=== PATIENT | male | born 1985 | race Caucasian/White ===

== ENCOUNTER 2018-01-30 00:48 | Emergency (ER) | payer OTHER, SELFPAY ==
[2018-01-30 00:50] VITALS: BP 133/86; PULSE 74; RESP 16; TEMP 36.3; O2SAT 99
--- NOTE | 2018-01-30 01:57 | ED.VISSUMM ---
- ER Visit Summary Date of Service: 01/30/18 Chief Complaint: Dental pain History of Present Illness: The patient is a 32 M who goes to [facility]. He had his right mandibular second molar pulled today. He reports that as the numbing wore off he had pain that is sharp. Is 10 out of 10 worsening a 10 currently. It is worsened by saltwater periods relieved by putting liquid in his mouth. He denies any fever, chills, nausea, vomiting, or facial swelling. Physical Examination: Vitals: Stable. Afebrile. Mouth: No trismus. No edema of the floor of the mouth. Right mandibular second molar is absent. There is no clot in place. There is exposed bone. General: A&O x 3. NAD. Cardiovascular exam: Regular rate and rhythm, no murmur, rub or gallop. Respiratory exam: Clear to auscultation bilaterally. No wheezes or stridor. Abdominal exam: Soft, nontender, nondistended, normal bowel sounds. No peritoneal signs. Extremity: No clubbing, cyanosis, or edema. Emergency Department Course and Treatment: Patient had a right inferior alveolar nerve block performed. It did give him some relief. He continues to complain of pain. I did attempt to place eugenol paste over this and this did not relieve his pain either. Treatment Plan: Patient will be discharged with [place] home pack and instructed to follow-up with [facility] in the morning for further evaluation. Disposition: To home in improved and stable condition. Impression: 1. Post extraction pain, right mandibular second molar. 2. Dental block. This note was generated with [employer] dictation software. It may contain incorrect words, spelling, and punctuation that were not noted in review of the chart prior to signing ED Disposition - Plan for ED Patient: Disposition: Home or Assisted Living Chief Complaint: Dental Instructions: ED Socket Dry Prescriptions: Hydrocodone Bitart/Apap 5-325 [[place] 5/325] 1 - 2 tablet PO Q4H PRN PRN 5 Days #12 tablet PRN Reason: Pain Referrals: Dentist,Your [STAFF PHYSICIAN] - 1 Day for another exam
[2018-01-30] MEDS: HYDROcodone Bitartrate/Apap 5/325 Tablet PO (02:08)
[2018-01-30 02:18] VITALS: RESP 16
--- NOTE | 2018-01-30 02:20 | ED.RN ---
REVIEWED D/C INSTRUCTIONS, FOLLOW UP CARE, PRESCRIPTIONS, AND S/S THAT WOULD WARRANT A RETURN TO THE ED WITH PT. PT VERBALIZED AN UNDERSTANDING AND DENIES FURTHER QUESTIONS FOR THIS RN. PT SKIN P/W/D, RESP EVEN AND UNLABORED, PT A&O X 3, NO DISTRESS NOTED. PT AMBULATED OUT OF ED, GAIT STEADY.
== END 2018-01-30 02:22 | disposition home or self-care (01) ==
PROVIDERS: Emergency Provider Emergency Medicine
DX: K08.89 Other specified disorders of teeth and supporting structures (principal); Z98.818 Other dental procedure status
CPT/HCPCS: 64402; 99282

== ENCOUNTER 2018-01-31 07:17 | Emergency (ER) | payer OTHER, SELFPAY ==
[2018-01-31 07:18] VITALS: BP 134/84; PULSE 110; RESP 18; TEMP 36.6; O2SAT 98; BMI 19.5
--- NOTE | 2018-01-31 08:20 | ED.VISSUMM ---
- ER Visit Summary Date of Service: 01/31/18 Chief Complaint: Chills and nausea History of Present Illness: The patient is a 32 M who states that on Sunday he had dental pain. He was seen very early Sunday morning with dental pain. He saw his dentist yesterday. Dental pain was better. He is on amoxicillin. Patient states now he has a generalized headache. He notes generalized myalgias. He notes a pain in his kidney and he points to his right mid axillary lower abdomen. He feels subjectively like he may have a fever. No cough. He notes generalized nausea particularly when standing. Physical Examination: Afebrile vital signs are stable Gen: Well-nourished well-developed Head: Normocephalic atraumatic Eyes: Perrl EOMI ENT: TMs clear no rhinorrhea moist mucous membranes dental extraction Neck: Supple no lymphadenopathy no JVD nontender CVS: Regular rate rhythm no murmurs normal S1-S2 Respiratory: No distress clear to auscultation bilaterally chest nontender Abdomen: Soft nontender nondistended normal bowel sounds no masses Back: Nontender Extremity: Nontender no edema Skin: Normal color no rash Neuro: alert orientated ?3 CN II-XII intact normal strength sensation reflexes gait cerebellar Psych: Normal affect normal mood Emergency Department Course and Treatment: During physical exam patient had a phone call from [employer] and he had no problems looking at his phone and talking on the phone. I excused myself for his privacy. Patient received Motrin and Zofran. I think the patient most likely has a viral syndrome. I do not see complications at the extraction site. He has no facial swelling. Impression: 1. Headache 2. Nausea status post dental extraction day 2 This note was generated with [employer] dictation software. It may contain incorrect words, spelling, and punctuation that were not noted in review of the chart prior to signing ED Disposition - Plan for ED Patient: Disposition: Home or Assisted Living Chief Complaint: Dental Instructions: ED Cephalgia Unspecified Prescriptions: Ondansetron [Zofran Odt] 4 mg PO Q8H PRN PRN #10 tab PRN Reason: Nausea Ibuprofen [Motrin] 800 mg PO TID PRN PRN #20 tab PRN Reason: Pain Referrals: Care Physician,No Primary [Primary Care Provider] - Diana Askew MD [STAFF PHYSICIAN] - (Call today to schedule follow-up as well as establish primary care)
[2018-01-31] MEDS: Ibuprofen 400 MG Tablet 800 MG PO (08:24)
[2018-01-31] MEDS: Ondansetron ODT 4 MG Tablet PO (08:24)
--- NOTE | 2018-01-31 08:24 | ED.DCSUM_ITS ---
- ER Visit Summary Date of Service: 01/31/18 Chief Complaint: Chills and nausea History of Present Illness: The patient is a 32 M who states that on Sunday he had dental pain. He was seen very early Sunday morning with dental pain. He saw his dentist yesterday. Dental pain was better. He is on amoxicillin. Patient states now he has a generalized headache. He notes generalized myalgias. He notes a pain in his kidney and he points to his right mid axillary lower abdomen. He feels subjectively like he may have a fever. No cough. He notes generalized nausea particularly when standing. Physical Examination: Afebrile vital signs are stable Gen: Well-nourished well-developed Head: Normocephalic atraumatic Eyes: Perrl EOMI ENT: TMs clear no rhinorrhea moist mucous membranes dental extraction Neck: Supple no lymphadenopathy no JVD nontender CVS: Regular rate rhythm no murmurs normal S1-S2 Respiratory: No distress clear to auscultation bilaterally chest nontender Abdomen: Soft nontender nondistended normal bowel sounds no masses Back: Nontender Extremity: Nontender no edema Skin: Normal color no rash Neuro: alert orientated ?3 CN II-XII intact normal strength sensation reflexes gait cerebellar Psych: Normal affect normal mood Emergency Department Course and Treatment: During physical exam patient had a phone call from [employer] and he had no problems looking at his phone and talking on the phone. I excused myself for his privacy. Patient received Motrin and Zofran. I think the patient most likely has a viral syndrome. I do not see complications at the extraction site. He has no facial swelling. Impression: 1. Headache 2. Nausea status post dental extraction day 2 This note was generated with [employer] dictation software. It may contain incorrect words, spelling, and punctuation that were not noted in review of the chart prior to signing ED Disposition - Plan for ED Patient: Disposition: Home or Assisted Living Chief Complaint: Dental Instructions: ED Cephalgia Unspecified Prescriptions: Ondansetron [Zofran Odt] 4 mg PO Q8H PRN PRN #10 tab PRN Reason: Nausea Ibuprofen [Motrin] 800 mg PO TID PRN PRN #20 tab PRN Reason: Pain Referrals: Care Physician,No Primary [Primary Care Provider] - Diana Askew MD [STAFF PHYSICIAN] - (Call today to schedule follow-up as well as establish primary care)
[2018-01-31 08:43] VITALS: RESP 18
== END 2018-01-31 08:43 | disposition home or self-care (01) ==
PROVIDERS: Emergency Provider Emergency Medicine
DX: R51 Headache (principal); R11.0 Nausea; M79.1 Myalgia; Z98.818 Other dental procedure status; R10.31 Right lower quadrant pain; R68.83 Chills (without fever); Z79.2 Long term (current) use of antibiotics
CPT/HCPCS: 99284

== ENCOUNTER 2022-10-05 05:44 | Emergency (ER) | payer BC, SELFPAY ==
[2022-10-05 05:44] VITALS: BP 127/85; PULSE 77; RESP 16; TEMP 36; O2SAT 100; BMI 17.2
--- NOTE | 2022-10-05 07:13 | EDS_ITS ---
HPI History of Present Illness Chief Complaint: General Illness Informant: patient Onset/Context/Timing Onset: Weeks (1) Context: Gradual Onset Timing: Continuous Quality: Aching Location: Throat, head Worsened by: Nothing Relieved by: Sleeping Narrative Narrative: Patient presents with with sore throat, chills, rhinorrhea, and crusting of his eyes that have been getting worse over the past week. Patient states today he woke up and his eyes were crusted shut. Patient used a warm compress and he was able to open them. Patient noted some redness in his eyes. Patient denies any blurry vision or double vision. Patient admits to some light sensitivity. Patient states he has headache and sore throat. Patient states nothing makes it worse. Patient states he is better when he was able to sleep. Patient did not take his temperature but states he felt chilled. PFSH PFSH Medical History no medical history no medical history Home Medications amoxicillin 500 mg capsule 500 mg PO Q8H 01/30/18 [History Last Taken Unknown] hydrocodone-acetaminophen 5-325mg 5mg-325mg 1 - 2 tab PO Q4H PRN PRN Pain 5 days ##12 01/30/18 [Rx Last Taken Unknown] ibuprofen 800 mg tablet 800 mg PO TID PRN PRN Pain #20 tabs 01/31/18 [Rx Last Taken Unknown] ondansetron 4 mg disintegrating tablet 4 mg PO Q8H PRN PRN Nausea #10 tabs 01/31/18 [Rx Last Taken Unknown] Allergy/AdvReac Type Severity Reaction Status Date / Time No Known Allergies Allergy Verified 01/31/18 07:22 Surgical History no surgical history no surgical history Social History Smoking Status: Never smoker ROS ROS ED Constitutional Constitutional ED: Reports chills and subjective; Denies fever(s) Eyes Eyes: Denies blurry vision or diplopia ENT ENT ED: Reports rhinorrhea and sore throat Cardiovascular Cardiovascular: Denies chest pain or palpitations Respiratory/Chest Respiratory/Chest: Reports cough; Denies dyspnea Gastrointestinal Gastrointestinal: Reports nausea; Denies vomiting Genitourinary Genitourinary ED: Denies dysuria or hematuria Musculoskeletal Musculoskeletal: Reports back pain; Denies neck pain Integumentary Denies abscess or rash Neurologic Neurologic: Reports headache(s); Denies weakness Allergic/Immunologic Allergic/Immunologic ED: Denies mouth swelling or urticaria EXAM Physical Exam Const Vital Signs: 10/05/22 05:44 Temperature 96.8 F L Temperature Source Temporal Pulse Rate 77 Respiratory Rate 16 Blood Pressure 127/85 H Blood Pressure Mean 99 Pulse Ox 100 Oxygen Delivery Method Room Air Positive well nourished and well developed General Appearance ED: well developed and NAD HEENT Reports moist mucous membranes HEENT Narrative: Oropharynx shows some mild postnasal drainage. There are no exudates noted. Tympanic membranes are clear bilaterally. Eyes PERRL and EOMs intact bilaterally Eyes Narrative: Conjunctiva is injected bilaterally, worse on the right. There is no purulent discharge or drainage noted. There is no matting or crusting. Neck no lymphadenopathy, supple and no JVD Resp normal respiratory effort and clear to auscultation bilaterally Cardio regular rate, regular rhythm and no murmurs GI normal to inspection, nondistended, normoactive bowel sounds and non-tender Palpation: soft Extremity normal to inspection General Extremety ED: Negative for edema or tenderness General Extremity: Negative for edema Neuro oriented x3, CN's II-XII intact bilaterally and no sensory deficits noted Sensorium / Orientation: alert Motor Exam: strength 5/5 throughout Psych mental status grossly normal Skin no rashes or lesions noted MDM MDM MDM Narrative Medical decision making narrative: Patient was given a dose of Tylenol here. Patient was given erythromycin ophthalmic ointment to both eyes. Rapid strep was obtained and was negative. COVID-19 rapid antigen was obtained and was negative. Influenza A and influenza B rapid antigens were obtained and were negative. PA and lateral chest x-ray was obtained. There are 2 views. On my interpretation, lung scott are clear. There is normal cardiac silhouette. Bony thorax is normal. There is no acute process noted. Radiologist also interpreted the x-ray and agrees. Patient is feeling better on reevaluation. Patient was instructed to use the erythromycin ointment 4 times a day to both eyes. Patient was instructed to drink plenty of fluids. Patient was instructed to take Tylenol or ibuprofen as needed for any aches or fevers. Patient understood and was agreeable with the plan. All questions were answered. Radiography Chest X-Ray - ED: 2 View, Read by ED Physician, Read by Radiologist and No Acute Disease Diagnostic Testing: Clinical Impression(s) from Imaging Studies Chest X-Ray 10/05/22 08:05 IMPRESSION: Hyperinflation. The lungs are clear. Electronically Signed: Piotr Mustafa MD at 8:34 EST , Discharge Plan Triage Chief Complaint: General Illness ED Provider: Jae Collins Dx/Rx/DC Orders Clinical Impression: Conjunctivitis, Upper respiratory infection, viral Instructions: ED Conjunctivitis, Nonspecific, ED URI, Viral, No Abx (Adult) Prescriptions: No Action amoxicillin 500 MG capsule 500 mg PO Q8H hydrocodone-acetaminophen 1 TABLET tablet 1 - 2 tab PO Q4H PRN PRN (Reason: Pain) 5 Days Qty: 12 0RF ibuprofen 800 MG tablet 800 mg PO TID PRN PRN (Reason: Pain) Qty: 20 0RF ondansetron 4 MG tablet 4 mg PO Q8H PRN PRN (Reason: Nausea) Qty: 10 0RF Stand Alone Forms: ED Work / School Excuse Primary Care Provider: Care Physician,No Primary Referrals: Mark Strange MD [Med Staff - [employer]] - 5-7 Days Care Physician,No Primary [Primary Care Provider] - Disposition Disposition: Home, Self Care
--- NOTE | 2022-10-05 08:05 | RAD_ITS ---
STUDY: X-RAY CHEST REASON FOR EXAM: Male, 37 years old. Cough , chills and sore throat. TECHNIQUE: PA and lateral views of the chest. COMPARISON: None. FINDINGS: Hyperinflation. The lungs are clear. There is no demonstrated pleural abnormality. Normal size heart. Normal mediastinum and erica. Normal visualized pulmonary arteries. Normal visualized aortic arch and descending thoracic aorta. Normal visualized thoracic spine. Normal visualized ribs, clavicles, and shoulders. There is no demonstrated abnormality of the visualized soft tissue structures of the upper abdomen. RAD/Chest PA and Lateral IMPRESSION: Hyperinflation. The lungs are clear. Electronically Signed: Piotr Mustafa MD at 8:34 EST ,
[2022-10-05] MEDS: Erythromycin Base 1 OPTH.TUBE 1 APPLIC EACH EYE (09:15)
[2022-10-05] MEDS: Acetaminophen 500 MG Tablet 1000 MG PO (09:19)
[2022-10-05 10:21] VITALS: BP 136/56; PULSE 74; RESP 12; O2SAT 99
== END 2022-10-05 10:21 | disposition home or self-care (01) ==
PROVIDERS: Emergency Provider Emergency Medicine; Visit Provider Emergency Medicine
DX: J06.9 Acute upper respiratory infection, unspecified (principal); H10.9 Unspecified conjunctivitis; R68.83 Chills (without fever)
CPT/HCPCS: 71046; 87428; 87880; 99283

== ENCOUNTER 2023-02-15 05:03 | Emergency (ER) | payer BC, SELFPAY ==
[2023-02-15 05:04] VITALS: BP 121/88; PULSE 77; RESP 18; TEMP 36.7; O2SAT 99; BMI 18.0
--- NOTE | 2023-02-15 05:22 | RAD_ITS ---
EXAM: XR CHEST, 1 VIEW CLINICAL INDICATION: cough cough TECHNIQUE: Frontal view of the chest. This report was created using [employer] report generation technology. COMPARISON: Chest x-ray 10/05/2022. FINDINGS: LUNGS AND PLEURAL SPACES: Lungs are hyperexpanded on both current and previous exams, which may be due to very good inspiratory effort or might be due to air trapping. There are no demonstrated pulmonary infiltrates. No pneumothorax. No effusion. HEART: Unremarkable. Cardiac silhouette not enlarged. MEDIASTINUM: Central airways and mediastinal contour are unremarkable. BONES/JOINTS: Unremarkable. SOFT TISSUES: Unremarkable. RAD/Chest 1 View (Portable) IMPRESSION: Mild hyperexpansion of the lungs. No demonstrated pulmonary infiltrates. Electronically Signed: Brett Lombardi MD at 5:39 EDT Reading Location ID and State: [facility] / [place] , Service support ,
[2023-02-15] MEDS: Benzonatate 100 MG Capsule 200 MG PO (05:36)
[2023-02-15] MEDS: dexAMETHasone 10 MG/ML Vial PO.IVFORM (05:37)
--- NOTE | 2023-02-15 05:40 | EDS_ITS ---
HPI History of Present Illness Chief Complaint: General Illness Narrative Narrative: Patient is a 37-year-old male with no significant past medical history. He states that about 3 to 4 days ago he began with some nasal congestion and drainage. He reports that he then developed cough followed by muscle aches with and then bouts of nausea and vomiting. He states he lives alone but has exposure to multiple people at work. He denies any fevers or chills or history of immunosuppression but with concern for worsening infection he comes in for evaluation [facility] Medical History no medical history no medical history Home Medications amoxicillin 500 mg capsule 500 mg PO Q8H 01/30/18 [History Last Taken Unknown] hydrocodone-acetaminophen 5-325mg 5mg-325mg 1 - 2 tab PO Q4H PRN PRN Pain 5 days ##12 01/30/18 [Rx Last Taken Unknown] ibuprofen 800 mg tablet 800 mg PO TID PRN PRN Pain #20 tabs 01/31/18 [Rx Last Taken Unknown] ondansetron 4 mg disintegrating tablet 4 mg PO Q8H PRN PRN Nausea #10 tabs 01/31/18 [Rx Last Taken Unknown] azelastine 137 mcg (0.1 %) nasal spray aerosol 2 spray intranasal BID #30 mL 02/15/23 [Rx Last Taken Unknown] benzonatate 200 mg capsule 200 mg PO TID PRN cough #30 caps 02/15/23 [Rx Last Taken Unknown] ondansetron 4 mg disintegrating tablet 4 mg PO TID PRN nausea and vomiting #21 tabs 02/15/23 [Rx Last Taken Unknown] prednisone 20 mg tablet 40 mg PO DAILY 7 days #14 tabs 02/15/23 [Rx Last Taken Unknown] Allergy/AdvReac Type Severity Reaction Status Date / Time No Known Allergies Allergy Verified 02/15/23 05:10 Surgical History no surgical history Social History Smoking Status: Never smoker ROS [facility] ED Constitutional Constitutional ED: Denies chills or fever(s) ENT ENT ED: Reports rhinorrhea and sore throat Cardiovascular Cardiovascular: Denies chest pain Respiratory/Chest Respiratory/Chest: Reports cough; Denies dyspnea Gastrointestinal Gastrointestinal: Reports nausea and vomiting; Denies abdominal pain or diarrhea Genitourinary Genitourinary ED: Denies dysuria or hematuria Musculoskeletal Musculoskeletal: Reports myalgias Integumentary Denies rash Neurologic Neurologic: Reports headache(s) Hematologic/Lymphatic Hematologic/Lymphatic: Denies easy bleeding or easy bruising EXAM Physical Exam Const Vital Signs: 02/15/23 05:04 Temperature 98.0 F Temperature Source Temporal Pulse Rate 77 Respiratory Rate 18 Blood Pressure 121/88 H Blood Pressure Mean 99 Pulse Ox 99 Oxygen Delivery Method Room Air Positive well nourished and well developed General Appearance ED: well developed HEENT Reports moist mucous membranes HEENT Narrative: Nasal mucosa is hyperemic and boggy with enlarged inferior nasal turbinates. Patient has cobblestoning the posterior pharynx consistent with sinus drainage without airway edema or compromise or signs of posterior pharynx infection. Bilateral TMs are retracted but otherwise showed no signs of secondary infection Eyes PERRL and EOMs intact bilaterally General Eye ED: Negative for scleral icterus Neck supple Neck Narrative: Positive anterior cervical lymphadenopathy noted Resp normal respiratory effort and clear to auscultation bilaterally Resp Narrative: No nasal flaring retractions tachypnea or accessory muscle use Cardio regular rate and regular rhythm GI non-tender and non-distended GI Narrative: Abdomen is soft nontender nondistended with hyperactive bowel sounds there is no voluntary guarding or rigidity no pulsatile mass Auscultation: hyperactive bowel sounds Palpation: soft Extremity normal to inspection Neuro oriented x3 and CN's II-XII intact bilaterally Sensorium / Orientation: alert Psych mental status grossly normal Skin no rashes or lesions noted and skin turgor normal MDM MDM MDM Narrative Medical decision making narrative: Patient presented to the ER with stable vitals and no signs of acute respiratory distress. His constellation of symptoms is most consistent with a viral URI and secondary viral stomach infection. His abdomen is also soft and nonsurgical and therefore I feel no need for an emergent CT scan. Based on his exposure to multiple about work a rapid COVID and influenza swab was obtained as well as chest x-ray. Chest x-ray revealed no obvious infiltrate or other lung pathology as a cause of his symptoms. Viral swabs negative indicating he has another virus such as rhinovirus or human metapneumovirus or parents once virus is a cause of his symptoms. At this time he does not have pneumonia or pneumothorax his abdomen is soft going against acute intestinal infection and vitals are stable so do not feel there is need for further testing. Patient will be instructed on symptomatic care for his viral illnesses but is otherwise safe for discharge. History & Record Review Discussion w/independent historian: Patient Radiography Diagnostic Testing: Clinical Impression(s) from Imaging Studies Chest X-Ray 02/15/23 05:22 IMPRESSION: Mild hyperexpansion of the lungs. No demonstrated pulmonary infiltrates. Electronically Signed: Brett Lombardi MD at 5:39 EDT , Chest x-ray as interpreted by the emergency medicine physician reveals no acute infiltrate pneumothorax or pleural effusion Discharge Plan Triage Chief Complaint: General Illness ED Provider: Eduardo Cornell Dx/Rx/DC Orders Clinical Impression: Viral upper respiratory tract infection with cough Instructions: ED URI, Viral, No Abx (Adult) Prescriptions: New azelastine 137 mcg (0.1 %) aerosol,spray 2 spray intranasal BID Qty: 30 0RF Rx Instructions: administer into each nostril prednisone 20 mg tablet 40 mg PO DAILY 7 Days Qty: 14 0RF benzonatate 200 mg capsule 200 mg PO TID PRN (Reason: cough) Qty: 30 0RF ondansetron 4 mg tablet,disintegrating 4 mg PO TID PRN (Reason: nausea and vomiting) Qty: 21 0RF No Action amoxicillin 500 MG capsule 500 mg PO Q8H hydrocodone-acetaminophen 1 TABLET tablet 1 - 2 tab PO Q4H PRN PRN (Reason: Pain) 5 Days Qty: 12 0RF ibuprofen 800 MG tablet 800 mg PO TID PRN PRN (Reason: Pain) Qty: 20 0RF ondansetron 4 MG tablet 4 mg PO Q8H PRN PRN (Reason: Nausea) Qty: 10 0RF Stand Alone Forms: ED Work / School Excuse Primary Care Provider: Care Physician,No Primary Referrals: Latesha Marmolejo MD [Med Staff - [employer]] - Care Physician,No Primary [Primary Care Provider] - Activity Restrictions/Additional Instructions: Your x-ray shows no pneumonia and your exam is consistent with a viral infection which will last on average 14 to 21 days. Take the medication as prescribed to help control symptoms and return to the ER should you have any further concerns. Disposition Disposition: Home, Self Care
== END 2023-02-15 07:16 | disposition home or self-care (01) ==
PROVIDERS: Emergency Provider Emergency Medicine; Visit Provider Emergency Medicine
DX: J06.9 Acute upper respiratory infection, unspecified (principal); R05.9 Cough, unspecified
CPT/HCPCS: 71045; 87428; 99283

== ENCOUNTER 2024-10-10 23:33 | Emergency (ER) | payer SELFPAY ==
[2024-10-10 23:34] VITALS: BP 137/92; PULSE 82; RESP 16; TEMP 36.5; O2SAT 98; BMI 17.6
[2024-10-10 23:36] VITALS: BP 141/86; PULSE 73; RESP 18; TEMP 36.5; O2SAT 99
--- NOTE | 2024-10-10 23:57 | ED.VIS.DENTA ---
HPI History of Present Illness Chief Complaint: Dental Informant: patient Narrative Narrative: 39-year-old male healthy has had poor teeth, he has had 1 that has decayed and bothering him for about a week, painful in the past 3 days or so, and since yesterday swelling to the point where he is really hurting severely now. Took some leftover amoxicillin that he got from someone this morning. Has been using temporary filling which had been helping until the swelling occurred. PFSH PFSH Medical History no medical history Home Medications ?Medication ?Instructions ?Recorded ?Last Taken ?Type ibuprofen 800 mg tablet 800 mg PO TID PRN PRN Pain #20 tabs 01/31/18 Unknown Rx ondansetron 4 mg disintegrating 4 mg PO Q8H PRN PRN Nausea #10 tabs 01/31/18 Unknown Rx tablet ondansetron 4 mg disintegrating 4 mg PO TID PRN nausea and 02/15/23 Unknown Rx tablet vomiting #21 tabs prednisone 20 mg tablet 40 mg (2 x 20 mg) PO DAILY 7 days 02/15/23 Unknown Rx #14 tabs amoxicillin 500 mg tablet 500 mg PO TID #30 tabs 10/10/24 Unknown Rx Allergy/AdvReac Type Severity Reaction Status Date / Time No Known Allergies Allergy Verified 10/10/24 23:34 Family History no significant family his Surgical History no surgical history Social History Smoking Status: Never smoker ROS ROS ED Constitutional Constitutional ED: Denies chills or fever(s) Eyes Eyes: Denies change in vision or double vision ENT ENT ED: Reports dental pain; Denies sinus pain or throat swelling Cardiovascular Cardiovascular: Denies chest pain or palpitations Respiratory/Chest Respiratory/Chest: Denies cough or dyspnea Integumentary Denies abscess or rash Neurologic Neurologic: Denies headache(s), paresthesias or weakness EXAM Physical Exam Const Vital Signs: 10/10/24 23:34 10/10/24 23:36 Temperature 97.7 F L 97.7 F L Temperature Source Oral Oral Pulse Rate 82 73 Respiratory Rate 16 18 Blood Pressure 137/92 H 141/86 H Blood Pressure Mean 107 104 Pulse Ox 98 99 Oxygen Delivery Method Room Air Room Air Positive well nourished and well developed General Appearance ED: well developed and NAD HEENT HEENT Narrative: Obvious swelling external face, and next to affected tooth #19 left mandibular. Palpable abscess pointing no spontaneous drainage, mild trismus as a result. Sublingual tissues nondistended and nontender no tongue elevation. No bleeding from the gingiva which is normal-appearing. Face and Sinus: sinuses nontender Throat: posterior oropharynx normal Eyes PERRL and EOMs intact bilaterally Neck no lymphadenopathy and supple Resp normal respiratory effort Neuro oriented x3 and CN's II-XII intact bilaterally Sensorium / Orientation: alert Gait (Neuro): normal gait Psych mental status grossly normal and thought process normal Skin no rashes or lesions noted and no wounds MDM MDM MDM Narrative Medical decision making narrative: Refilled his amoxicillin and patient was amenable to a dental abscess aspiration which was done see the procedure note. This should help alleviate the infection along with antibiotics. Advised follow-up with a dentist. Procedures Other Procedures Procedure(s): Dental abscess aspiration: After informed consent from the patient verbally, the area was sprayed at the mucosal side with Cetacaine twice, followed by aspirating with 21-gauge needle, I was able to fill a 3 cc syringe with a bloody pus, patient tolerated well rinsed with ice water no complications. Discharge Plan Triage Chief Complaint: Dental ED Provider: Zack Hernandez Dx/Rx/DC Orders Clinical Impression: Abscess, dental, Infected dental caries Instructions: Dental Abscess Prescriptions: New amoxicillin 500 mg tablet 500 mg PO TID Qty: 30 0RF No Action ibuprofen 800 MG tablet 800 mg PO TID PRN PRN (Reason: Pain) Qty: 20 0RF ondansetron 4 MG tablet 4 mg PO Q8H PRN PRN (Reason: Nausea) Qty: 10 0RF prednisone 20 mg tablet 40 mg PO DAILY 7 Days Qty: 14 0RF ondansetron 4 mg tablet,disintegrating 4 mg PO TID PRN (Reason: nausea and vomiting) Qty: 21 0RF Primary Care Provider: Care Physician,No Primary Referrals: Dentist,Your [STAFF PHYSICIAN] - As soon as possible Print Language: Cambodian Disposition Disposition: Home, Self Care
[2024-10-11] MEDS: traMADol 50 MG Tablet PO (00:08)
[2024-10-11] MEDS: AMOXICILLIN 500 MG CAPSULE PO (00:08)
== END 2024-10-11 00:13 | disposition home or self-care (01) ==
LOC: ED 10-11 00:12
PROVIDERS: Emergency Provider Emergency Medicine; Visit Provider Emergency Medicine
DX: K04.7 Periapical abscess without sinus (principal); K02.9 Dental caries, unspecified
CPT/HCPCS: 41800; 99283

== ENCOUNTER 2025-01-19 06:02 | Emergency (ER) | payer SELFPAY ==
[2025-01-19 06:05] VITALS: BP 118/76; PULSE 89; RESP 18; TEMP 36.7; O2SAT 99; BMI 17.3
[2025-01-19] MEDS: Ondansetron 4 MG/2 ML Vial IV (06:45)
[2025-01-19] MEDS: Ketorolac 15 MG/ML Vial IV (06:45)
[2025-01-19] MEDS: 0.9% Normal Saline (1000mL) 1,000 ML 1000 ML IV (06:45)
[2025-01-19 07:16] LABS: Anion Gap 8 (5-15); BUN 7 mg/dL (7-18); BUN/Creat Ratio 8.4 RATIO (10-20); Calcium,Total 8.8 mg/dL (8.5-10.1); Chloride 104 mmol/L (98-107); Creatinine, Serum 0.83 mg/dL (0.70-1.30); EST Glomerular Filtration Rate 108 mL/min (>60); Est Glom Filt Rate - Afr Amer 131 mL/min (>60); Estimated Creatinine Clearance 84.02 ml/min; Glucose 83 mg/dL (74-106); Potassium 4.2 mmol/L (3.5-5.1); Sodium Level 138 mmol/L (136-145)
--- NOTE | 2025-01-19 08:00 | EX.ED.DYSGE1 ---
HPI History of Present Illness Chief Complaint: General Illness Narrative Narrative: Presents headache myalgias this evening. Vomiting x 3 at home. No diarrhea. No abdominal pain. No cough. COVID infection a few years ago. Denies sick contacts. Denies urinary symptoms. PFSH PFSH Medical History no medical history Home Medications ?Medication ?Instructions ?Recorded ?Last Taken ?Type NK 01/19/25 Unknown History Allergy/AdvReac Type Severity Reaction Status Date / Time No Known Allergies Allergy Verified 01/19/25 06:04 Family History no significant family his Surgical History no surgical history Social History Smoking Status: Never smoker ROS ROS ED Constitutional Constitutional ED: Denies chills, fever(s) or sweats ENT ENT ED: Denies sore throat Cardiovascular Cardiovascular: Denies chest pain, leg edema, palpitations or racing heartbeat Respiratory/Chest Respiratory/Chest: Denies cough, dyspnea or dyspnea on exertion Gastrointestinal Gastrointestinal: Reports nausea and vomiting; Denies abdominal pain or diarrhea Genitourinary Genitourinary ED: Denies dysuria, hematuria or urinary frequency Musculoskeletal Musculoskeletal: Reports myalgias; Denies back pain, extremity pain or neck pain Integumentary Denies rash or wounds Neurologic Neurologic: Reports headache(s); Denies paresthesias or weakness EXAM Physical Exam Const Vital Signs: 01/19/25 06:05 01/19/25 06:06 01/19/25 08:06 Temperature 98.1 F 97.2 F L Temperature Source Oral Oral Pulse Rate 89 82 Respiratory Rate 18 16 Respiratory Effort Normal Non-Labored Respiratory Pattern Normal Blood Pressure 118/76 101/70 Blood Pressure Mean 90 80 Pulse Ox 99 97 Oxygen Delivery Method Room Air Room Air 01/19/25 08:06 Temperature 97.2 F L Temperature Source Pulse Rate 82 Respiratory Rate 16 Respiratory Effort Respiratory Pattern Blood Pressure 101/70 Blood Pressure Mean 80 Pulse Ox 97 Oxygen Delivery Method Positive well nourished and well developed General Appearance ED: well developed and NAD HEENT Reports moist mucous membranes normocephalic and atraumatic Eyes General Eye ED: Yes normal appearance of both eyes Neck full ROM and no lymphadenopathy Neck Narrative: No meningismus Chest Wall inspection of chest normal and palpation of chest normal Chest: Negative for tenderness Resp normal respiratory effort and normal air movement Effort and Inspection: symmetric chest movement; Negative for respiratory distress Cardio regular rate, regular rhythm and no murmurs Peripheral Pulses: pulses 2+ throughout GI normal to inspection, nondistended, normoactive bowel sounds and non-tender GI Narrative: Negative Coleman's or McBurney's tenderness Palpation: Negative for guarding or rebound tenderness present Extremity normal to inspection General Extremety ED: Negative for edema or tenderness General Extremity: Negative for edema Neuro oriented x3, CN's II-XII intact bilaterally and no sensory deficits noted Sensorium / Orientation: awake and alert Skin no rashes or lesions noted and no wounds MDM MDM MDM Narrative Medical decision making narrative: Interventions / MDM: Differential diagnosis: Viral syndrome, vomiting, headache Diagnosis considered but do not suspect: Electrolyte abnormalities however labs normal. No clinical meningitis. My EKG interpretation: N/A Imaging independently reviewed and interpreted by myself: N/A External documents reviewed: N/A Test considered but not ordered:N/A ED course: Headache vomiting and myalgias this evening. No focal deficits. No meningismus. Vomiting prior to arrival, was nauseated. IV established for fluids electrolyte sent. COVID, flu, RSV. Zofran and Toradol ordered for symptom control. 0800: Labs normal, COVID-positive. Symptoms improving. No comorbidities to warrant any antiviral's at this time. He has Zofran at home. Discussed using Tylenol or Motrin as needed. Continue oral fluids for hydration. Outpatient follow-up. All questions were answered. Re-evaluation: stable Disposition discussed with patient/family/significant other: Patient Case discussed with consulting clinician: N/A This note was generated with [employer] dictation software. It may contain incorrect words, spelling, and punctuation that were not noted in checking the note before signing. Lab Data Labs: Laboratory Results - last 24 hr 01/19/25 06:49 Sodium 138 Potassium 4.2 Chloride 104 Carbon Dioxide 26.0 Anion Gap 8 BUN 7 Creatinine 0.83 Estim Creat Clear Calc 84.02 Est GFR (MDRD) Af Amer 131 Est GFR (MDRD) Non-Af 108 BUN/Creatinine Ratio 8.4 L Glucose 83 Calcium 8.8 Discharge Plan Triage Chief Complaint: General Illness ED Provider: Mars Glaser Dx/Rx/DC Orders Clinical Impression: COVID-19, Headache, Vomiting Instructions: Coronavirus Disease 2019 (COVID-19): Caring for Yourself or Others, ED Vomiting (Adult) Prescriptions: No Action NK Stand Alone Forms: ED Work / School Excuse Primary Care Provider: Care Physician,No Primary Referrals: Care Physician,No Primary [Primary Care Provider] - Activity Restrictions/Additional Instructions: COVID-positive. Flu and RSV negative. He oral fluids right duration at home. Use your home Zofran as needed. Tylenol Motrin as needed for headache symptoms. Print Language: Portuguese Disposition Disposition: Home, Self Care Discharge Date/Time: 01/19/25 08:23
[2025-01-19 08:06] VITALS: BP 101/70; PULSE 82; RESP 16; TEMP 36.2; O2SAT 97
== END 2025-01-19 08:23 | disposition home or self-care (01) ==
PROVIDERS: Emergency Provider Emergency Medicine; Visit Provider Emergency Medicine
DX: U07.1 COVID-19 (principal); R51.9 Headache, unspecified; R11.10 Vomiting, unspecified
CPT/HCPCS: 80048; 87631; 96361; 96374; 96375; 99283; A4216; J2405